=== PATIENT | male | born 1990 | race African-American/Black ===

== ENCOUNTER 2022-12-21 18:36 | Emergency (ER) | payer OTHER ==
[2022-12-21] MEDS ORDERED: Divalproex Sodium DR 500 MG TAB ONE (19:16)
== END 2022-12-21 20:10 | disposition still patient (30) ==
LOC: EEVIPCON 18:36 → CSHERS 18:36
DX: G40.89 Other seizures (principal)
CPT/HCPCS: 36416; 70450; 93005